=== PATIENT | female | born 1990 | race Caucasian/White ===

== ENCOUNTER 2023-09-21 07:53 | Inpatient (IN) ==
[2023-09-21] MEDS ORDERED: OXYTOCIN 30 UNITS/NSS 30 UNITS/500 ML BAG IV PRN ×2 (08:00)
[2023-09-21] MEDS ORDERED: LIDOCAINE 1% LOCAL 20 ML VIAL INFIL PRN (08:00)
[2023-09-21 08:30] LABS: Hemoglobin 12.5 g/dl (12.0-16.0); Mean Corpuscular Hemoglobin 30.2 pg (25.0-34.0); Mean Corpuscular Hgb Conc 34.7 g/dL (32.0-36.0); Platelet Count 265 K/uL (130-400); RDW Coefficient of Variation 13.2 % (11.5-14.5); RDW Standard Deviation 41.5 fL (36.4-46.3); Red Blood Count 4.14 M/uL (4.20-5.40); White Blood Count 9.15 K/ul (4.8-10.8)
--- NOTE | 2023-09-21 10:50 | History & Physical Report ---
Date of Service September 21, 2023 Assessment & Plan (1) Supervision of normal intrauterine in primigravida: Plan: Duran balloon placed this morning, 35cc sterile water. We will start pitocin. Patient agreeable with plan for IOL. OK for epidural when she desires. Admission and Anticipated Discharge Date Admission Date: September 21, 2023 History of Present Illness Chief Complaint: IOL Primary Care Provider: ANNMARIE Mathias 32yo @ 39 03/07, IOL for postdates. and Delivery Plans Covid Vaccine x 2 Fibroid Uterus: plan formal ultrasound. [facility] [place] [facility] consult-02/19 consult *check fibroid at 20 wk US *Plan to attempt vaginal delivery *check growth q4wks starting 28wks, monitor growth due to FH S>D IOL 09/21 Allergies Allergy/AdvReac Type Severity Reaction Status Date / Time No Known Allergies Allergy Verified 09/20/23 11:17 Home Medications Medication Instructions Recorded Confirmed Type prenat.vits,wade,[id number] 1 tab PO DAILY 02/01/23 09/21/23 History breast pump #1 ea 06/22/23 09/20/23 Rx RSV vac, preF A and preF B(PF) 120 0.5 ml IM ONCE #1 ea 08/11/23 09/20/23 Rx mcg/0.5 mL IM solution (Abrysvo) Iron (ferrous sulfate) 1 tab PO Q2D 09/21/23 09/21/23 History Patient History Medical History No pertinent past medical history Surgical History S/P wisdom tooth extraction No pertinent past surgical history Family History Grandfather Lung cancer Prostate cancer Aunt Breast cancer Dyslipidemia Heart disease Thyroid disease Father Hypertension Grandfather Colorectal cancer Denies family history of Ovarian cancer Diabetes Myocardial infarction Social History (Updated 02/01/23 @ 14:10 by Kera Cartagena) Smoking Status: Never smoker Second Hand Exposure: No; Do You Dip or Chew Tobacco: No; Hx Alcohol Use: No Hx Substance Use: No Preferred Language: Faroese Communication Ability: Effective 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 Feels Safe at Home: Yes Safety Concerns: Feels Safe At This Time caffeine: Yes Dental Care, Regularly: Yes Physical Activity Frequency Comment: occasional Seatbelt Use: always Sunscreen Use: Yes Review of Systems All systems reviewed & are unremarkable except as noted in HPI & below Physical Exam Physical Exam: FHT Cat 1 [place] none SVE FT/th/-3 Constitutional: WD/WN, vitals as above Respiratory: normal respiratory effort, lungs clear to auscultation no respiratory distress Cardiovascular: Rate/Rhythm: regular rate and regular rhythm Gastrointestinal (Abdomen): Inspection/Auscultation: abdomen normal to inspection Percussion/Palpation: abdomen soft; abdomen nontender Gravid. No s/s chorio or abruption. Skin: no rashes, warm and dry Psychiatric: A+Ox3, euthymic affect Results & Data Vital Signs (Past 12 Hours) Vital Signs Temp Pulse Resp BP 09/21/23 08:30 36.6 C 127 H 20 116/70 09/21/23 08:02 127 H 116/70 09/21/23 08:01 20 09/21/23 08:01 36.6 C 20 Coding Level of Care Code None Diagnoses Supervision of normal intrauterine in primigravida Z34.00
[2023-09-21] MEDS: LACTATED RINGER'S 1,000 ML IV PRN ×4 (10:59→22:04)
[2023-09-21] MEDS ORDERED: ePHEDrine sulfate 50 MG/ML AMP ONE (14:09)
[2023-09-21] MEDS ORDERED: fentaNYL citrate PF 100 MCG/2 ML VIAL ONE (14:09)
[2023-09-21] MEDS ORDERED: fentANYL 2 MCG/ML BUPIVacaine 0.125%-NSS 100ML BAG ONE (14:10)
[2023-09-21] MEDS ORDERED: BUPIVACAINE 0.25% PF 30 ML VIAL ONE (14:10)
[2023-09-21] MEDS ORDERED: SODIUM CHLORIDE 0.9% PF INJ 10 ML VIAL ONE (14:10)
[2023-09-21] MEDS ORDERED: LIDOCAINE 2%/EPINEPHRINE 1:200,000 20 ML PF ONE (14:10)
--- NOTE | 2023-09-21 17:01 | Labor Progress Brief Note ---
Date of Service September 21, 2023 Subjective Does not yet desire epidural. FHT Cat 1 [place] Q 2 SVE 4/80/-2, bulging membranes. AROM performed clear fluid. Continue pitocin, labor. OK for epidural when she desire. Assessment & Plan Admission and Anticipated Discharge Date Admission Date: September 21, 2023 Results & Data Vital Signs (Past 12 Hours) Vital Signs Temp Pulse Resp BP 09/21/23 16:02 96 H 09/21/23 16:02 125/64 09/21/23 15:01 94 H 09/21/23 15:01 117/59 L 09/21/23 14:02 93 H 09/21/23 14:02 134/58 L 09/21/23 14:01 97 H 09/21/23 14:01 168/70 H 09/21/23 13:03 84 09/21/23 13:03 120/58 L 09/21/23 11:57 18 09/21/23 11:57 36.8 C 18 09/21/23 11:57 82 09/21/23 11:57 118/66 09/21/23 10:53 100 H 09/21/23 10:53 119/70 09/21/23 08:30 36.6 C 127 H 20 116/70 09/21/23 08:02 127 H 116/70 09/21/23 08:01 20 09/21/23 08:01 36.6 C 20 Coding Level of Care Code None
--- NOTE | 2023-09-21 20:41 | Anesthesiology Consultation ---
Date of Service September 21, 2023 Assessment & Plan (1) Encounter for pre-operative examination: Chart Review Chart Review: Acceptable Risk for Labor Epidural History Height/Weight Height: 5 ft 4 in Weight: 100.244 kg Allergies Allergy/AdvReac Type Severity Reaction Status Date / Time No Known Allergies Allergy Verified 09/20/23 11:17 Medications Home Medications Medication Instructions Recorded Confirmed Last Taken prenat.vits,wade,zpa-avpw-jaluu 1 tab PO DAILY 02/01/23 09/21/23 09/21/23 07:00 breast pump #1 ea 06/22/23 09/20/23 Unknown RSV vac, preF A and preF B(PF) 120 0.5 ml IM ONCE #1 ea 08/11/23 09/20/23 Unknown mcg/0.5 mL IM solution (Abrysvo) Iron (ferrous sulfate) 1 tab PO Q2D 09/21/23 09/21/23 09/20/23 20:00 Active Medications Generic Name Dose Route Start Last Admin Trade Name Freq PRN Reason Stop Dose Admin Oxytocin 30 units in 500 mls @ 10 mls/hr 09/21/23 08:00 09/21/23 20:15 Pitocin 30 Units/Nss IV 09/23/23 07:59 0.6 units/hr .Q24H PRN 10 mls/hr Labor Induction/Augmentation Titration Protocol 0.6 UNITS/HR Lactated Ringer's 1,000 mls @ 125 mls/hr 09/21/23 08:00 09/21/23 19:00 Lr IV 09/23/23 07:59 125 mls/hr .Q8H PRN Infusion L&D Protocol Protocol Past Medical History Medical History No pertinent past medical history Past Family History Family History Grandfather Lung cancer Prostate cancer Aunt Breast cancer Dyslipidemia Heart disease Thyroid disease Father Hypertension Grandfather Colorectal cancer Denies family history of Ovarian cancer Diabetes Myocardial infarction Past Surgical History Surgical History S/P wisdom tooth extraction No pertinent past surgical history Social History Smoking Status: Never smoker Do You Dip or Chew Tobacco: No Hx Alcohol Use: No Alcohol type: beer and wine Hx Substance Use: No substance use type: does not use Physical Exam Vital Signs Last Vital Signs Temp 36.3 C L 09/21/23 19:30 Pulse 88 09/21/23 19:08 Resp 18 09/21/23 19:30 BP 129/67 09/21/23 19:08 Testing Laboratory Results 09/21/23 08:15 Blood Type O Positive 09/21/23 08:15 Antibody Screen NEGATIVE 09/21/23 08:15
[2023-09-21] MEDS ORDERED: fentaNYL citrate PF 100 MCG/2 ML VIAL EPI PRN (21:07)
[2023-09-21] MEDS ORDERED: BUPIVACAINE 0.25% PF 30 ML VIAL EPI STA (21:07)
[2023-09-21] MEDS ORDERED: LIDOCAINE 2%/EPINEPHRINE 1:200,000 20 ML PF EPI STA (21:07)
[2023-09-21] MEDS ORDERED: ePHEDrine sulfate 50 MG/ML AMP IV PRN (21:07)
[2023-09-21] MEDS ORDERED: ROPIVACAINE 0.5% PF 5 MG/ML 20 ML VIAL EPI PRN (21:07)
[2023-09-21] MEDS ORDERED: NALOXONE HCL 1 MG in SODIUM CHLORIDE 0.9% 1,000 ML IV PRN (21:07)
[2023-09-21] MEDS ORDERED: BUPIVACAINE 0.25% PF 30 ML VIAL EPI PRN (21:07)
[2023-09-21] MEDS ORDERED: SODIUM CHLORIDE 0.9% PF INJ 10 ML VIAL EPI PRN (21:07)
[2023-09-21] MEDS ORDERED: NALOXONE HCL 0.4 MG/1 ML VIAL/CARP IV PRN (21:07)
[2023-09-21] MEDS ORDERED: fentaNYL citrate PF 100 MCG/2 ML VIAL EPI STA (21:07)
[2023-09-21] MEDS ORDERED: LIDOCAINE 2% MPF LOCAL 5 ML VIAL EPI PRN (21:07)
[2023-09-21] MEDS ORDERED: SODIUM CHLORIDE 0.9% PF INJ 10 ML VIAL EPI STA (21:07)
[2023-09-21] MEDS ORDERED: ONDANSETRON INJ 2 MG/ML 2 ML VIAL IV PRN (21:07)
[2023-09-21] MEDS ORDERED: fentANYL 2 MCG/ML BUPIVacaine 0.125%-NSS 100ML BAG EPI PRN (21:07)
--- NOTE | 2023-09-21 21:45 | Labor Progress Brief Note ---
Date of Service September 21, 2023 Subjective Comfortable with epidural. Cervix 4cm per RN check. FHT 130s mod greg +accels, +decel - resolved with repositioning. Continue labor. Assessment & Plan Admission and Anticipated Discharge Date Admission Date: September 21, 2023 Results & Data Vital Signs (Past 12 Hours) Vital Signs Temp Pulse Resp BP Pulse Ox 09/21/23 21:42 89 09/21/23 21:42 103/54 L 09/21/23 21:38 99 09/21/23 21:38 100 H 09/21/23 21:33 98 09/21/23 21:33 74 09/21/23 21:30 18 09/21/23 21:30 36.7 C 18 09/21/23 21:28 97 09/21/23 21:28 78 09/21/23 21:27 81 09/21/23 21:27 121/55 L 09/21/23 21:23 98 09/21/23 21:23 86 09/21/23 21:18 97 09/21/23 21:18 88 09/21/23 21:13 99 09/21/23 21:13 97 H 09/21/23 21:12 97 H 09/21/23 21:12 121/57 L 09/21/23 21:10 108 H 09/21/23 21:10 121/60 09/21/23 21:08 99 09/21/23 21:08 104 H 09/21/23 21:08 97 H 09/21/23 21:08 126/60 09/21/23 21:06 97 H 09/21/23 21:06 123/63 09/21/23 21:04 94 H 09/21/23 21:04 124/67 09/21/23 21:03 99 09/21/23 21:03 99 H 09/21/23 21:01 90 09/21/23 21:01 118/64 09/21/23 20:58 99 09/21/23 20:58 93 H 09/21/23 20:53 99 09/21/23 20:53 100 H 09/21/23 20:48 100 09/21/23 20:48 96 H 09/21/23 20:43 100 09/21/23 20:43 90 09/21/23 19:30 36.3 C L 18 09/21/23 19:30 18 09/21/23 19:30 36.3 C L 18 09/21/23 19:08 88 09/21/23 19:08 129/67 09/21/23 18:56 20 09/21/23 18:56 37.0 C 20 09/21/23 18:56 91 H 09/21/23 18:56 125/60 09/21/23 17:45 18 09/21/23 17:45 37.0 C 18 09/21/23 17:45 100 H 09/21/23 17:45 120/60 09/21/23 16:59 88 09/21/23 16:59 128/80 09/21/23 16:58 18 09/21/23 16:58 36.7 C 18 09/21/23 16:02 96 H 09/21/23 16:02 125/64 09/21/23 15:01 94 H 09/21/23 15:01 117/59 L 09/21/23 14:02 93 H 09/21/23 14:02 134/58 L 09/21/23 14:01 97 H 09/21/23 14:01 168/70 H 09/21/23 13:03 84 09/21/23 13:03 120/58 L 09/21/23 11:57 18 09/21/23 11:57 36.8 C 18 09/21/23 11:57 82 09/21/23 11:57 118/66 09/21/23 10:53 100 H 09/21/23 10:53 119/70 Coding Level of Care Code None
--- NOTE | 2023-09-22 00:36 | Labor Progress Brief Note ---
Date of Service September 22, 2023 Subjective Comfortable. FHT Cat 1 [place] q 2 SVE 4-5/80/-2 IUPC, FSE placed. Continue pitocin. Assessment & Plan Admission and Anticipated Discharge Date Admission Date: September 21, 2023 Results & Data Vital Signs (Past 12 Hours) Vital Signs Temp Pulse Resp BP Pulse Ox 09/22/23 00:34 91 H 92 09/22/23 00:33 85 96 09/22/23 00:28 97 09/22/23 00:28 83 09/22/23 00:28 97 H 108/60 09/22/23 00:23 89 97 09/22/23 00:18 94 H 99 09/22/23 00:13 75 98/56 L 98 09/22/23 00:08 79 95 09/22/23 00:03 76 99 09/21/23 23:58 97 09/21/23 23:58 78 09/21/23 23:58 84 09/21/23 23:58 96/58 L 09/21/23 23:53 98 09/21/23 23:53 74 09/21/23 23:48 98 09/21/23 23:48 74 09/21/23 23:43 97 09/21/23 23:43 75 09/21/23 23:42 85 09/21/23 23:42 115/53 L 09/21/23 23:38 99 09/21/23 23:38 91 H 09/21/23 23:33 97 09/21/23 23:33 82 09/21/23 23:30 18 09/21/23 23:30 18 09/21/23 23:28 98 09/21/23 23:28 76 09/21/23 23:28 95/55 L 09/21/23 23:23 98 09/21/23 23:23 73 09/21/23 23:18 99 09/21/23 23:18 78 09/21/23 23:13 98 09/21/23 23:13 74 09/21/23 23:12 88 09/21/23 23:12 98/56 L 09/21/23 23:08 98 09/21/23 23:08 76 09/21/23 23:03 98 09/21/23 23:03 73 09/21/23 22:58 98 09/21/23 22:58 78 09/21/23 22:58 92/53 L 09/21/23 22:53 99 09/21/23 22:53 89 09/21/23 22:48 99 09/21/23 22:48 75 09/21/23 22:43 99 09/21/23 22:43 80 09/21/23 22:43 101/55 L 09/21/23 22:38 99 09/21/23 22:38 79 09/21/23 22:33 98 09/21/23 22:33 87 09/21/23 22:30 18 09/21/23 22:30 18 09/21/23 22:28 98 09/21/23 22:28 81 09/21/23 22:27 81 09/21/23 22:27 95/53 L 09/21/23 22:23 98 09/21/23 22:23 85 09/21/23 22:18 99 09/21/23 22:18 93 H 09/21/23 22:13 99 09/21/23 22:13 92 H 09/21/23 22:12 88 09/21/23 22:12 102/57 L 09/21/23 22:08 98 09/21/23 22:08 75 09/21/23 22:03 97 09/21/23 22:03 76 09/21/23 22:00 18 09/21/23 22:00 18 09/21/23 21:58 99 09/21/23 21:58 76 09/21/23 21:58 96/54 L 09/21/23 21:53 98 09/21/23 21:53 80 09/21/23 21:48 97 09/21/23 21:48 90 09/21/23 21:43 97 09/21/23 21:43 94 H 09/21/23 21:42 89 09/21/23 21:42 103/54 L 09/21/23 21:38 99 09/21/23 21:38 100 H 09/21/23 21:33 98 09/21/23 21:33 74 09/21/23 21:30 18 09/21/23 21:30 36.7 C 18 09/21/23 21:28 97 09/21/23 21:28 78 09/21/23 21:27 81 09/21/23 21:27 121/55 L 09/21/23 21:23 98 09/21/23 21:23 86 09/21/23 21:18 97 09/21/23 21:18 88 09/21/23 21:13 99 09/21/23 21:13 97 H 09/21/23 21:12 97 H 09/21/23 21:12 121/57 L 09/21/23 21:10 108 H 09/21/23 21:10 121/60 09/21/23 21:08 99 09/21/23 21:08 104 H 09/21/23 21:08 97 H 09/21/23 21:08 126/60 09/21/23 21:06 97 H 09/21/23 21:06 123/63 09/21/23 21:04 94 H 09/21/23 21:04 124/67 09/21/23 21:03 99 09/21/23 21:03 99 H 09/21/23 21:01 90 09/21/23 21:01 118/64 09/21/23 20:58 99 09/21/23 20:58 93 H 09/21/23 20:53 99 09/21/23 20:53 100 H 09/21/23 20:48 100 09/21/23 20:48 96 H 09/21/23 20:43 100 09/21/23 20:43 90 09/21/23 19:30 36.3 C L 18 09/21/23 19:30 18 09/21/23 19:30 36.3 C L 18 09/21/23 19:08 88 09/21/23 19:08 129/67 09/21/23 18:56 20 09/21/23 18:56 37.0 C 20 09/21/23 18:56 91 H 09/21/23 18:56 125/60 09/21/23 17:45 18 09/21/23 17:45 37.0 C 18 09/21/23 17:45 100 H 09/21/23 17:45 120/60 09/21/23 16:59 88 09/21/23 16:59 128/80 09/21/23 16:58 18 09/21/23 16:58 36.7 C 18 09/21/23 16:02 96 H 09/21/23 16:02 125/64 09/21/23 15:01 94 H 09/21/23 15:01 117/59 L 09/21/23 14:02 93 H 09/21/23 14:02 134/58 L 09/21/23 14:01 97 H 09/21/23 14:01 168/70 H 09/21/23 13:03 84 09/21/23 13:03 120/58 L Coding Level of Care Code None
[2023-09-22] MEDS: LACTATED RINGER'S 1,000 ML IV PRN ×2 (02:38→04:07)
--- NOTE | 2023-09-22 04:57 | Labor Progress Brief Note ---
Date of Service September 22, 2023 Subjective Comfortable with epidural. FHT Cat 1 [place] Q 2 SVE 8/100/0 Continue IOL. Assessment & Plan Admission and Anticipated Discharge Date Admission Date: September 21, 2023 Results & Data Vital Signs (Past 12 Hours) Vital Signs Temp Pulse Resp BP Pulse Ox 09/22/23 04:52 113 H 97 09/22/23 04:47 126 H 97 09/22/23 04:42 95 09/22/23 04:42 118 H 09/22/23 04:42 121 H 118/55 L 09/22/23 04:37 115 H 97 09/22/23 04:32 122 H 98 09/22/23 04:30 113 H 18 94 09/22/23 04:27 122 H 116/58 L 96 09/22/23 04:22 110 H 98 09/22/23 04:17 116 H 99 09/22/23 04:12 99 09/22/23 04:12 116 H 09/22/23 04:12 116 H 107/55 L 09/22/23 04:07 114 H 96 09/22/23 04:02 113 H 97 09/22/23 04:00 18 09/22/23 04:00 37.0 C 18 09/22/23 03:57 125 H 106/55 L 97 09/22/23 03:52 110 H 97 09/22/23 03:47 113 H 97 09/22/23 03:43 105 H 106/61 09/22/23 03:42 122 H 99 09/22/23 03:37 103 H 98 09/22/23 03:32 101 H 99 09/22/23 03:28 104 H 106/59 L 09/22/23 03:27 107 H 99 09/22/23 03:22 105 H 100 09/22/23 03:17 98 H 100 09/22/23 03:15 108 H 111/53 L 09/22/23 03:12 119 H 100 09/22/23 03:03 131 H 100 09/22/23 02:58 97 H 116/57 L 100 09/22/23 02:53 97 H 97 09/22/23 02:48 94 H 100 09/22/23 02:43 124 H 100 09/22/23 02:41 103 H 92 09/22/23 02:38 96 H 100 09/22/23 02:33 93 H 100 09/22/23 02:28 100 09/22/23 02:28 100 H 09/22/23 02:28 103 H 126/60 09/22/23 02:23 110 H 99 09/22/23 02:18 100 H 99 09/22/23 02:13 81 97 09/22/23 02:12 80 100/57 L 92 09/22/23 02:08 77 97 09/22/23 02:03 71 95 09/22/23 02:00 18 09/22/23 02:00 18 09/22/23 01:58 96 09/22/23 01:58 70 09/22/23 01:58 77 95/56 L 09/22/23 01:53 71 96 09/22/23 01:48 73 96 09/22/23 01:47 83 94 09/22/23 01:43 78 100/52 L 96 09/22/23 01:38 73 97 09/22/23 01:33 73 96 09/22/23 01:28 74 97 09/22/23 01:27 84 106/55 L 09/22/23 01:23 80 95 09/22/23 01:18 75 95 09/22/23 01:14 75 95/53 L 09/22/23 01:13 78 98 09/22/23 01:08 76 96 09/22/23 01:03 75 97 09/22/23 01:00 18 09/22/23 01:00 18 09/22/23 00:58 83 96 09/22/23 00:57 83 105/55 L 09/22/23 00:53 91 H 96 09/22/23 00:48 89 96 09/22/23 00:43 83 97 09/22/23 00:38 92 H 97 09/22/23 00:34 91 H 92 09/22/23 00:33 85 96 09/22/23 00:30 18 09/22/23 00:30 36.7 C 18 09/22/23 00:28 97 09/22/23 00:28 83 09/22/23 00:28 97 H 108/60 09/22/23 00:23 89 97 09/22/23 00:18 94 H 99 09/22/23 00:13 75 98/56 L 98 09/22/23 00:08 79 95 09/22/23 00:03 76 99 09/21/23 23:58 97 09/21/23 23:58 78 09/21/23 23:58 84 09/21/23 23:58 96/58 L 09/21/23 23:53 98 09/21/23 23:53 74 09/21/23 23:48 98 09/21/23 23:48 74 09/21/23 23:43 97 09/21/23 23:43 75 09/21/23 23:42 85 09/21/23 23:42 115/53 L 09/21/23 23:38 99 09/21/23 23:38 91 H 09/21/23 23:33 97 09/21/23 23:33 82 09/21/23 23:30 18 09/21/23 23:30 18 09/21/23 23:28 98 09/21/23 23:28 76 09/21/23 23:28 95/55 L 09/21/23 23:23 98 09/21/23 23:23 73 09/21/23 23:18 99 09/21/23 23:18 78 09/21/23 23:13 98 09/21/23 23:13 74 09/21/23 23:12 88 09/21/23 23:12 98/56 L 09/21/23 23:08 98 09/21/23 23:08 76 09/21/23 23:03 98 09/21/23 23:03 73 09/21/23 22:58 98 09/21/23 22:58 78 09/21/23 22:58 92/53 L 09/21/23 22:53 99 09/21/23 22:53 89 09/21/23 22:48 99 09/21/23 22:48 75 09/21/23 22:43 99 09/21/23 22:43 80 09/21/23 22:43 101/55 L 09/21/23 22:38 99 09/21/23 22:38 79 09/21/23 22:33 98 09/21/23 22:33 87 09/21/23 22:30 18 09/21/23 22:30 18 09/21/23 22:28 98 09/21/23 22:28 81 09/21/23 22:27 81 09/21/23 22:27 95/53 L 09/21/23 22:23 98 09/21/23 22:23 85 09/21/23 22:18 99 09/21/23 22:18 93 H 09/21/23 22:13 99 09/21/23 22:13 92 H 09/21/23 22:12 88 09/21/23 22:12 102/57 L 09/21/23 22:08 98 09/21/23 22:08 75 09/21/23 22:03 97 09/21/23 22:03 76 09/21/23 22:00 18 09/21/23 22:00 18 09/21/23 21:58 99 09/21/23 21:58 76 09/21/23 21:58 96/54 L 09/21/23 21:53 98 09/21/23 21:53 80 09/21/23 21:48 97 09/21/23 21:48 90 09/21/23 21:43 97 09/21/23 21:43 94 H 09/21/23 21:42 89 09/21/23 21:42 103/54 L 09/21/23 21:38 99 09/21/23 21:38 100 H 09/21/23 21:33 98 09/21/23 21:33 74 09/21/23 21:30 18 09/21/23 21:30 36.7 C 18 09/21/23 21:28 97 09/21/23 21:28 78 09/21/23 21:27 81 09/21/23 21:27 121/55 L 09/21/23 21:23 98 09/21/23 21:23 86 09/21/23 21:18 97 09/21/23 21:18 88 09/21/23 21:13 99 09/21/23 21:13 97 H 09/21/23 21:12 97 H 09/21/23 21:12 121/57 L 09/21/23 21:10 108 H 09/21/23 21:10 121/60 09/21/23 21:08 99 09/21/23 21:08 104 H 09/21/23 21:08 97 H 09/21/23 21:08 126/60 09/21/23 21:06 97 H 09/21/23 21:06 123/63 09/21/23 21:04 94 H 09/21/23 21:04 124/67 09/21/23 21:03 99 09/21/23 21:03 99 H 09/21/23 21:01 90 09/21/23 21:01 118/64 09/21/23 20:58 99 09/21/23 20:58 93 H 09/21/23 20:53 99 09/21/23 20:53 100 H 09/21/23 20:48 100 09/21/23 20:48 96 H 09/21/23 20:43 100 09/21/23 20:43 90 09/21/23 19:30 36.3 C L 18 09/21/23 19:30 18 09/21/23 19:30 36.3 C L 18 09/21/23 19:08 88 09/21/23 19:08 129/67 09/21/23 18:56 20 09/21/23 18:56 37.0 C 20 09/21/23 18:56 91 H 09/21/23 18:56 125/60 09/21/23 17:45 18 09/21/23 17:45 37.0 C 18 09/21/23 17:45 100 H 09/21/23 17:45 120/60 09/21/23 16:59 88 09/21/23 16:59 128/80 09/21/23 16:58 18 09/21/23 16:58 36.7 C 18 Coding Level of Care Code None
[2023-09-22] MEDS: ACETAMINOPHEN 500 MG TAB PO PRN ×2 (07:12→09:41)
--- NOTE | 2023-09-22 07:37 | Labor Progress Brief Note ---
Date of Service September 22, 2023 Subjective Comfortable with epidural, not yet feeling urge to push. Occas variable deceleration, otherwise FHT 140s mod greg +accels. [place] Q 2 SVE 10/100/0 to +1 station Will begin pushing when she feels urge. Assessment & Plan Admission and Anticipated Discharge Date Admission Date: September 21, 2023 Results & Data Vital Signs (Past 12 Hours) Vital Signs Temp Pulse Resp BP Pulse Ox 09/22/23 07:32 118 H 96 09/22/23 07:27 98 09/22/23 07:27 116 H 09/22/23 07:27 108 H 110/62 09/22/23 07:22 108 H 98 09/22/23 07:17 126 H 98 09/22/23 07:13 123 H 115/67 09/22/23 07:12 123 H 98 09/22/23 07:07 128 H 96 09/22/23 07:04 116 H 90 09/22/23 07:02 105 H 98 09/22/23 06:58 97 H 123/62 09/22/23 06:57 89 96 09/22/23 06:52 109 H 99 09/22/23 06:47 93 H 98 09/22/23 06:42 104 H 118/56 L 98 09/22/23 06:37 110 H 98 09/22/23 06:32 96 H 97 09/22/23 06:30 18 09/22/23 06:30 18 09/22/23 06:27 98 09/22/23 06:27 109 H 09/22/23 06:27 113 H 116/69 94 09/22/23 06:22 82 97 09/22/23 06:17 103 H 98 09/22/23 06:13 106 H 127/58 L 09/22/23 06:12 108 H 97 09/22/23 06:07 97 H 96 09/22/23 06:02 105 H 98 09/22/23 06:01 110 H 93 09/22/23 05:58 113 H 135/63 09/22/23 05:57 118 H 99 09/22/23 05:52 91 H 95 09/22/23 05:50 108 H 93 09/22/23 05:47 94 H 97 09/22/23 05:43 99 H 122/60 09/22/23 05:42 103 H 98 09/22/23 05:37 109 H 98 09/22/23 05:36 111 H 92 09/22/23 05:32 92 H 97 09/22/23 05:30 18 09/22/23 05:30 36.3 C L 18 09/22/23 05:28 100 H 113/66 09/22/23 05:27 107 H 99 09/22/23 05:22 107 H 96 09/22/23 05:17 101 H 97 09/22/23 05:13 110 H 120/58 L 09/22/23 05:12 112 H 98 09/22/23 05:07 99 H 95 09/22/23 05:02 107 H 95 09/22/23 05:00 18 09/22/23 05:00 18 09/22/23 04:57 114 H 107/54 L 97 09/22/23 04:52 113 H 97 09/22/23 04:47 126 H 97 09/22/23 04:42 95 09/22/23 04:42 118 H 09/22/23 04:42 121 H 118/55 L 09/22/23 04:37 115 H 97 09/22/23 04:32 122 H 98 09/22/23 04:30 113 H 18 94 09/22/23 04:27 122 H 116/58 L 96 09/22/23 04:22 110 H 98 09/22/23 04:17 116 H 99 09/22/23 04:12 99 09/22/23 04:12 116 H 09/22/23 04:12 116 H 107/55 L 09/22/23 04:07 114 H 96 09/22/23 04:02 113 H 97 09/22/23 04:00 18 09/22/23 04:00 37.0 C 18 09/22/23 03:57 125 H 106/55 L 97 09/22/23 03:52 110 H 97 09/22/23 03:47 113 H 97 09/22/23 03:43 105 H 106/61 09/22/23 03:42 122 H 99 09/22/23 03:37 103 H 98 09/22/23 03:32 101 H 99 09/22/23 03:28 104 H 106/59 L 09/22/23 03:27 107 H 99 09/22/23 03:22 105 H 100 09/22/23 03:17 98 H 100 09/22/23 03:15 108 H 111/53 L 09/22/23 03:12 119 H 100 09/22/23 03:03 131 H 100 09/22/23 02:58 97 H 116/57 L 100 09/22/23 02:53 97 H 97 09/22/23 02:48 94 H 100 09/22/23 02:43 124 H 100 09/22/23 02:41 103 H 92 09/22/23 02:38 96 H 100 09/22/23 02:33 93 H 100 09/22/23 02:28 100 09/22/23 02:28 100 H 09/22/23 02:28 103 H 126/60 09/22/23 02:23 110 H 99 09/22/23 02:18 100 H 99 09/22/23 02:13 81 97 09/22/23 02:12 80 100/57 L 92 09/22/23 02:08 77 97 09/22/23 02:03 71 95 09/22/23 02:00 18 09/22/23 02:00 18 09/22/23 01:58 96 09/22/23 01:58 70 09/22/23 01:58 77 95/56 L 09/22/23 01:53 71 96 09/22/23 01:48 73 96 09/22/23 01:47 83 94 09/22/23 01:43 78 100/52 L 96 09/22/23 01:38 73 97 09/22/23 01:33 73 96 09/22/23 01:28 74 97 09/22/23 01:27 84 106/55 L 09/22/23 01:23 80 95 09/22/23 01:18 75 95 09/22/23 01:14 75 95/53 L 09/22/23 01:13 78 98 09/22/23 01:08 76 96 09/22/23 01:03 75 97 09/22/23 01:00 18 09/22/23 01:00 18 09/22/23 00:58 83 96 09/22/23 00:57 83 105/55 L 09/22/23 00:53 91 H 96 09/22/23 00:48 89 96 09/22/23 00:43 83 97 09/22/23 00:38 92 H 97 09/22/23 00:34 91 H 92 09/22/23 00:33 85 96 09/22/23 00:30 18 09/22/23 00:30 36.7 C 18 09/22/23 00:28 97 09/22/23 00:28 83 09/22/23 00:28 97 H 108/60 09/22/23 00:23 89 97 09/22/23 00:18 94 H 99 09/22/23 00:13 75 98/56 L 98 09/22/23 00:08 79 95 09/22/23 00:03 76 99 09/21/23 23:58 97 09/21/23 23:58 78 09/21/23 23:58 84 09/21/23 23:58 96/58 L 09/21/23 23:53 98 09/21/23 23:53 74 09/21/23 23:48 98 09/21/23 23:48 74 09/21/23 23:43 97 09/21/23 23:43 75 09/21/23 23:42 85 09/21/23 23:42 115/53 L 09/21/23 23:38 99 09/21/23 23:38 91 H 09/21/23 23:33 97 09/21/23 23:33 82 09/21/23 23:30 18 09/21/23 23:30 18 09/21/23 23:28 98 09/21/23 23:28 76 09/21/23 23:28 95/55 L 09/21/23 23:23 98 09/21/23 23:23 73 09/21/23 23:18 99 09/21/23 23:18 78 09/21/23 23:13 98 09/21/23 23:13 74 09/21/23 23:12 88 09/21/23 23:12 98/56 L 09/21/23 23:08 98 09/21/23 23:08 76 09/21/23 23:03 98 09/21/23 23:03 73 09/21/23 22:58 98 09/21/23 22:58 78 09/21/23 22:58 92/53 L 09/21/23 22:53 99 09/21/23 22:53 89 09/21/23 22:48 99 09/21/23 22:48 75 09/21/23 22:43 99 09/21/23 22:43 80 09/21/23 22:43 101/55 L 09/21/23 22:38 99 09/21/23 22:38 79 09/21/23 22:33 98 09/21/23 22:33 87 09/21/23 22:30 18 09/21/23 22:30 18 09/21/23 22:28 98 09/21/23 22:28 81 09/21/23 22:27 81 09/21/23 22:27 95/53 L 09/21/23 22:23 98 09/21/23 22:23 85 09/21/23 22:18 99 09/21/23 22:18 93 H 09/21/23 22:13 99 09/21/23 22:13 92 H 09/21/23 22:12 88 09/21/23 22:12 102/57 L 09/21/23 22:08 98 09/21/23 22:08 75 09/21/23 22:03 97 09/21/23 22:03 76 09/21/23 22:00 18 09/21/23 22:00 18 09/21/23 21:58 99 09/21/23 21:58 76 09/21/23 21:58 96/54 L 09/21/23 21:53 98 09/21/23 21:53 80 09/21/23 21:48 97 09/21/23 21:48 90 09/21/23 21:43 97 09/21/23 21:43 94 H 09/21/23 21:42 89 09/21/23 21:42 103/54 L 09/21/23 21:38 99 09/21/23 21:38 100 H 09/21/23 21:33 98 09/21/23 21:33 74 09/21/23 21:30 18 09/21/23 21:30 36.7 C 18 09/21/23 21:28 97 09/21/23 21:28 78 09/21/23 21:27 81 09/21/23 21:27 121/55 L 09/21/23 21:23 98 09/21/23 21:23 86 09/21/23 21:18 97 09/21/23 21:18 88 09/21/23 21:13 99 09/21/23 21:13 97 H 09/21/23 21:12 97 H 09/21/23 21:12 121/57 L 09/21/23 21:10 108 H 09/21/23 21:10 121/60 09/21/23 21:08 99 09/21/23 21:08 104 H 09/21/23 21:08 97 H 09/21/23 21:08 126/60 09/21/23 21:06 97 H 09/21/23 21:06 123/63 09/21/23 21:04 94 H 09/21/23 21:04 124/67 09/21/23 21:03 99 09/21/23 21:03 99 H 09/21/23 21:01 90 09/21/23 21:01 118/64 09/21/23 20:58 99 09/21/23 20:58 93 H 09/21/23 20:53 99 09/21/23 20:53 100 H 09/21/23 20:48 100 09/21/23 20:48 96 H 09/21/23 20:43 100 09/21/23 20:43 90 Coding Level of Care Code None
[2023-09-22] MEDS ORDERED: ACETAMINOPHEN 325 MG TAB PO PRN (09:28)
[2023-09-22] MEDS ORDERED: OXYTOCIN 30 UNITS/NSS 30 UNITS/500 ML BAG IV PRN (09:28)
[2023-09-22] MEDS ORDERED: oxyCODONE/ACETAMINOPHEN 5mg/325mg TAB PO PRN (09:28)
[2023-09-22] MEDS ORDERED: DIPHTHERIA/TETANUS/PERTUSSIS Vaccine (Tdap, Age 7+yrs) 0.5mL SYR/VL IM ONE (09:28)
[2023-09-22] MEDS ORDERED: BENZOCAINE 20% SPRY 85 APPLN/85 GM CAN EXT PRN (09:28)
[2023-09-22] MEDS ORDERED: bisacodyL 10 MG SUPP PR PRN (09:28)
[2023-09-22] MEDS ORDERED: HYDROCORTISONE ACETATE 25 MG SUPP PR PRN (09:28)
--- NOTE | 2023-09-22 09:44 | Anesthesia Procedure Note ---
Date of Service September 22, 2023 Anesthesia Post Epidural Note Vital Signs Vital Signs: Temp Pulse Resp BP Pulse Ox 97.3 F L 96 H 18 123/56 L 93 09/22/23 05:30 09/22/23 09:32 09/22/23 06:30 09/22/23 09:27 09/22/23 09:32 Pain Intensity Bilateral Abdomen: Pain Intensity: 0 Notes Mental Status: alert / awake / arousable and participated in evaluation Nausea / Vomiting: adequately controlled Pain: adequately controlled Airway Patency, RR, SpO2: stable & adequate BP & HR: stable & adequate Hydration State: stable & adequate Neuraxial Anesthesia: was administered and sensory block is resolving Anesthetic Complications: no major complications apparent and Pt Satisfied with anesthetic care Epidural: Removed without complications and With tip intact
--- NOTE | 2023-09-22 10:09 | Delivery Summary ---
Vaginal Delivery Summary Date of Service September 22, 2023 Vaginal Delivery Summary and 2nd Degree LAC Patient is a 32-year-old 1 P0 female who presents for induction of labor. Dr. Garcia managed her labor process. She received epidural analgesia which was effective. She progressed to full dilation with the urge to push. There were deep variables while pushing but good recovery in between contractions. She pushed effectively to and after delivery of the he ad, there was a tight nuchal cord present which was clamped and cut prior to delivering the rest the infant. The infant was not vigorous and with poor color and tone at delivery. He was then immediately taken to the baby bed for further stimulation and management. Please see Dr. Lee's notes for his care. After cord blood was obtained, placenta was expressed intact with a three-vessel cord. A second-degree perineal laceration was repaired with 3-0 chromic in usual fashion. bleeding was controlled with dilute Pitocin and fundal massage. Estimated blood loss is 200 cc. Mother was in stable condition after delivery however the baby was taken to the nursery for further post resuscitation management. MNP Vaginal Delivery Charge Delivery Type Details: and 2nd Degree LAC
[2023-09-22] MEDS: IBUPROFEN 600 MG TAB PO PRN ×2 (15:45→22:49)
[2023-09-22] MEDS: DOCUSATE SODIUM 100 MG CAP PO SCH (22:49)
--- NOTE | 2023-09-23 06:46 | Obstetrical Progress Note ---
Date of Service September 23, 2023 Assessment & Plan (1) care following vaginal delivery: Plan: Doing well Encourage ambulation Pain control Discharge tomorrow Admission and Anticipated Discharge Date Admission Date: September 21, 2023 Supervising Physician Co-Signing Physician Notes Resident Physician Supervision Note: I interviewed and examined the patient. Discussed with Dr. Barrera and agree with findings and plan as documented in the note. Any exceptions or clarifications are listed here: [None] Documented By: Sue Shipman MD, FACOG Subjective 32 yo post day 1 s/p Ambulation: ambulating normally Voiding: no voiding problems Passing Gas:: Yes Diet Tolerance:: regular diet Lochia:: Small Feeding Type:: breast feeding Current Pain Level: mild Resting comfortably this AM in NAD. Denies MERAZ, CP, SOB, N/V/D, LE pain/swelling. Review of Systems Review of Systems: reviewed, per HPI Physical Exam Physical Exam: General: patient resting comfortably, NAD, non-toxic in appearance, answers questions appropriately. Skin: warm, dry, intact HEENT: NC/AT, anicteric sclera, conjunctiva without injection, moist mucus membranes. Heart: +S1/S2, regular, no m/r/g Lungs: equal air entry bilaterally, no rales/rhonchi/wheezes Abd: +BS, soft, NT/ND, uterine fundus firm at umbilicus Ext: warm, no clubbing/cyanosis or edema, Neelam's neg. Neuro: speech intact, no facial droop, moving all extremities on command. Results & Data Vital Signs (Past 12 Hours) Vital Signs Temp Pulse Resp BP Pulse Ox O2 Del Method 09/23/23 02:37 36.4 C L 92 H 18 119/80 97 Room Air 09/22/23 22:50 36.5 C 89 18 117/74 98 Room Air 09/22/23 19:03 36.7 C 92 H 18 115/74 98 Room Air Resident Activity Tracking Resident Involvement: Resident Care Provided Care Provided: Adult Hospital Medicine
[2023-09-23 07:36] LABS: Hematocrit (blood only) 29.7 % (37.0-47.0); Mean Corpuscular Hemoglobin 29.9 pg (25.0-34.0); Mean Corpuscular Hgb Conc 33.7 g/dL (32.0-36.0); Mean Corpuscular Volume 88.9 fL (80.0-100.0); Mean Platelet Volume 11.1 fL (9.4-12.4); Platelet Count 196 K/uL (130-400); RDW Coefficient of Variation 13.6 % (11.5-14.5); RDW Standard Deviation 44.3 fL (36.4-46.3); Red Blood Count 3.34 M/uL (4.20-5.40); White Blood Count 11.63 K/ul (4.8-10.8)
[2023-09-23] MEDS: IBUPROFEN 600 MG TAB PO PRN ×3 (08:55→23:10)
[2023-09-23] MEDS: PRENATAL VITAMIN 1 TAB PO SCH (08:55)
[2023-09-23] MEDS: DOCUSATE SODIUM 100 MG CAP PO SCH ×2 (08:55→21:08)
[2023-09-23] MEDS ORDERED: bisacodyL 5 MG TABEC PO SCH (20:00)
--- NOTE | 2023-09-24 07:18 | Obstetrical Progress Note ---
Date of Service September 24, 2023 Assessment & Plan (1) care following vaginal delivery: Recovering well . Edema still present in LE's and likely has lateral femoral cutaneous nerve compression palsy after positioning with hip in severe flexion while epidural in place. Discussed expectation that she'll see resumption of normal sensation over several days, and to notify office if this does not occur as expected. Subjective Ambulation: ambulating normally Voiding: no voiding problems Passing Gas:: Yes Diet Tolerance:: regular diet Lochia:: Small Feeding Type:: breast feeding Patient c/o ongoing patch of decreased sensation over anterior L thigh, present since epidural wore off. Pushed with knees pulled back for 45+ min. Physical Exam Constitutional WD/WN, vitals as above Eyes PERRL, conjunctivae normal, anicteric sclerae Neck normal visual inspection Respiratory normal respiratory effort and able to speak in complete sentences; no respirato ry distress and no labored breathing Cardiovascular Rate/Rhythm: regular rate and regular rhythm Extremities: + edema (2+) Chest (Breasts) Chest: normal inspection of chest Gastrointestinal (Abdomen) Inspection/Auscultation: abdomen normal to inspection Soft, postgravid Psychiatric A+Ox3, euthymic affect Genitourinary OB Exam Abdomen: + fundal height Fundus: + firm and + relation to umbilicus (fundus just below umbilicus); not tender Results & Data Vital Signs (Past 12 Hours) Vital Signs Temp Pulse Resp BP Pulse Ox O2 Del Method 09/23/23 23:14 97.5 F L 87 16 120/82 97 Room Air 09/23/23 20:11 97.7 F 100 H 16 138/90 99 Room Air
[2023-09-24 09:22] LABS: Hematocrit (blood only) 32.5 % (37.0-47.0); Hemoglobin 10.8 g/dl (12.0-16.0)
[2023-09-24] MEDS: DOCUSATE SODIUM 100 MG CAP PO SCH (09:27)
[2023-09-24] MEDS: IBUPROFEN 600 MG TAB PO PRN (09:27)
[2023-09-24] MEDS: PRENATAL VITAMIN 1 TAB PO SCH (09:27)
== END 2023-09-24 11:45 | disposition home or self-care (01) | DRG 807 ==
LOC: 4S1 07:53 → 4E2 09-22 12:00